=== PATIENT | male | born 1965 ===

== ENCOUNTER 2023-01-23 14:01 | Inpatient (IN) | payer MEDICARE ==
[2023-01-23] MEDS ORDERED: MAGNESIUM HYDROXIDE 2,400 MG/30 ML CUP PO PRN (14:07)
[2023-01-23] MEDS ORDERED: MAG HYDROX/AL HYDROX/SIMETH 30 ML CUP PO PRN (14:07)
[2023-01-23] MEDS ORDERED: ACETAMINOPHEN TAB 325 MG TAB PO PRN (14:07)
[2023-01-23] MEDS ORDERED: IBUPROFEN 600 MG TAB PO PRN (14:07)
[2023-01-23] MEDS ORDERED: CALCIUM CARBONATE 500 MG CHEWABLE PO PRN (14:07)
[2023-01-23] MEDS ORDERED: OLANZapine 10 MG VIAL IM PRN (14:07)
[2023-01-23] MEDS ORDERED: OLANZapine 5 MG TAB PO PRN (14:07)
[2023-01-23] MEDS ORDERED: ALBUTEROL NEBULIZED 2.5 MG/3 ML INHALATION PRN (14:24)
[2023-01-23] MEDS ORDERED: hydrOXYzine pamoate 25 MG CAP PO PRN (14:29)
[2023-01-23] MEDS ORDERED: hydrOXYzine HCL 50 MG/ML 1 ML VIAL IM PRN (14:29)
[2023-01-24 15:53] LABS: Prothrombin Time 19.6 sec (9.0-12.0)
[2023-01-24] MEDS: FAMOTIDINE 20 MG TAB PO SCH ×3 (16:02→21:39)
[2023-01-24] MEDS: FUROSEMIDE 20 MG TAB PO SCH ×3 (16:02→16:09)
[2023-01-24] MEDS: SYMBICORT 80-4.5 MCG INHALER INHALATION SCH ×3 (16:02→21:38)
[2023-01-24] MEDS: ATORVASTATIN 40 MG TAB PO SCH ×2 (16:02→21:38)
[2023-01-24] MEDS: GABAPENTIN 400 MG CAP PO SCH ×2 (16:02→21:39)
[2023-01-24] MEDS: metFORMIN 500 MG TAB PO SCH ×3 (16:02→17:19)
[2023-01-24] MEDS: GABAPENTIN 300 MG CAP PO SCH ×3 (16:03→21:40)
[2023-01-24] MEDS: methocarbamoL 750 MG TAB PO SCH ×5 (16:03→21:40)
[2023-01-24] MEDS: CITALOPRAM HYDROBROMIDE 20 MG TAB PO SCH (16:03)
[2023-01-24] MEDS: traZODone HCL 100 MG TAB PO SCH ×2 (16:03→21:40)
[2023-01-24] MEDS: NICOTINE 14MG/24HR PATCH TRANSDERM SCH ×2 (16:04→18:34)
[2023-01-24] MEDS: HYDROcodone/APAP 7.5-325MG 1 EACH TAB PO PRN ×2 (16:10→21:38)
[2023-01-24 16:22] LABS: Glucose,Whole Blood 103 mg/dL (70-110)
[2023-01-24] MEDS: LORazepam 1 MG TAB PO PRN ×2 (17:18→23:36)
[2023-01-24 17:46] LABS: Glucose,Whole Blood 123 mg/dL (70-110)
[2023-01-24] MEDS: WARFARIN 5 MG TAB PO SCH (18:34)
[2023-01-24 20:01] LABS: Glucose,Whole Blood 129 mg/dL (70-110)
[2023-01-25 03:15] LABS: LDL Cholesterol,Calculated 205.2 mg/dL (0.0-131.0)
--- NOTE | 2023-01-25 06:14 | P.MDCNMH ---
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 He claims that he was doing well and was sober from alcohol for about 5 years until the of his best friend 3 months ago relapsed after that and now he is drinking heavily he's having poor sleep poor appetite and thinking of suicide everyday Otherwise he denies any medical concerns at this time denies any fevers or chills denies any chest pain trouble breathing nausea vomiting abdominal pain changes in bowel or urinary habits review of systems Pertinent positives as noted in HPI. All other systems were reviewed and are negative on exam Constitutional: No acute distress, conversant, pleasant Eyes: Anicteric sclerae, moist conjunctiva, Pupils equal round reactive to light Neck: Supple, no masses, or JVD Lungs: Clear to auscultation Clear to percussion Normal respiratory effort, no accessory muscle use Cardiovascular: Heart regular in rate and rhythm, No murmurs, gallops, or rubs No peripheral edema Abdominal: Soft Nontender, no guarding, rebound or rigidity Abdomen moving with respiration Normoactive bowel sounds Psychiatric: Alert and oriented to person, place and time Neuro Muscles Strength 5/5 in all 4 extremities Sensation to light touch grossly present throughout Cranial nerves II-XII grossly intact Past Medical History Past Medical History: Diabetes Mellitus, Deep Vein Thrombosis (DVT), Neurologic Disorder, Pulmonary Embolus (PE), Sleep Apnea/CPAP/BIPAP Additional Past Medical History / Comment(s): Chronic back pain. History of Any Multi-Drug Resistant Organisms: None Reported Past Surgical History: Back Surgery Past Anesthesia/Blood Transfusion Reactions: No Reported Reaction Past Psychological History: Anxiety, PTSD Smoking Status: Never smoker Past Alcohol Use History: Daily Additional Past Alcohol Use History / Comment(s): Pt is using chewing tobacco, he also states he was drinking 3 fifths a day but has not had any alcohol for about 2 weeks. Past Drug Use History: None Reported Medications and Allergies Home Medications Medication Instructions Recorded Confirmed Type Atorvastatin [Lipitor] 40 mg PO DAILY 01/24/23 01/24/23 History Citalopram Hydrobromide [CeleXA] 40 mg PO DAILY 01/24/23 01/24/23 History Gabapentin 1,200 mg PO HS 01/24/23 01/24/23 History Gabapentin 600 mg PO BID 01/24/23 01/24/23 History HYDROcodone/APAP 7.5-325MG [[place] 1 tab PO QID PRN 01/24/23 01/24/23 History 7.5-325] Warfarin [Coumadin] 5 mg PO DAILY 01/24/23 01/24/23 History hydrOXYzine HCL [Atarax] 100 mg PO TID 01/24/23 01/24/23 History metFORMIN HCL ER [Glucophage XR] 1,000 mg PO BID 01/24/23 01/24/23 History methocarbamoL [Methocarbamol] 750 mg PO QID 01/24/23 01/24/23 History traZODone HCL [Desyrel] 100 mg PO HS 01/24/23 01/24/23 History Allergies Allergy/AdvReac Type Severity Reaction Status Date / Time No Known Allergies Allergy Verified 01/24/23 16:44 Physical Exam Vitals: Vital Signs Temp Pulse Resp BP Pulse Ox 01/24/23 16:23 97.3 F L 78 20 139/72 97 01/24/23 15:13 97.3 F L 78 20 139/72 97 Intake and Output 01/24/23 01/24/23 01/25/23 14:59 22:59 06:59 Other: Weight 158.02 kg Cranial Nerve Examination - Cranial Nerves Cranial Nerve II- Optic: Intact Cranial Nerve III- Oculomotor: Intact Cranial Nerve IV- Trochlear: Intact Cranial Nerve V- Trigeminal: Intact Cranial Nerve - Abducens: Intact Cranial Nerve VII- Facial: Intact Cranial Nerve VIII- Auditory: Intact Cranial Nerve IX- Glossopharyngeal: Intact Cranial Nerve X- Vagus: Intact Cranial Nerve XI- Accessory: Intact Cranial Nerve XII- Hypoglossal: Intact Results Labs: Abnormal Lab Results - Last 24 Hours (Table) 01/24/23 01/24/23 01/24/23 Range/Units 15:26 15:26 17:44 PT 19.6 H (9.0-12.0) sec INR 2.0 H (<1.2) POC Glucose (mg/dL) 123 H (70-110) mg/dL Triglycerides 336.00 H (0.00-149.00) mg/dL Cholesterol 328.00 H (0.00-200.00) mg/dL LDL Cholesterol, Calc 205.2 H (0.0-131.0) mg/dL VLDL Cholesterol, Calc 67.20 H (5.00-40.00) mg/dL 01/24/23 Range/Units 19:59 PT (9.0-12.0) sec INR (<1.2) POC Glucose (mg/dL) 129 H (70-110) mg/dL Triglycerides (0.00-149.00) mg/dL Cholesterol (0.00-200.00) mg/dL LDL Cholesterol, Calc (0.0-131.0) mg/dL VLDL Cholesterol, Calc (5.00-40.00) mg/dL Assessment and Plan Assessment: h/o DVT PE continue coumadin dosing by pharmacy hyperlipidemia LDL 205 continue with atorvastatin DM continue with metformin EVY continue with night time oxygen , not allowed to use CPAP in the unit depression adn suicidal management per psych morbid obesity counseled to life style modification and weight loss thank you for this consultation
[2023-01-25 08:16] LABS: Glucose,Whole Blood 123 mg/dL (70-110)
[2023-01-25] MEDS: NICOTINE 14MG/24HR PATCH TRANSDERM SCH (08:50)
[2023-01-25] MEDS: metFORMIN 500 MG TAB PO SCH ×2 (08:50→20:46)
[2023-01-25] MEDS: methocarbamoL 750 MG TAB PO SCH ×4 (08:51→21:14)
[2023-01-25] MEDS: GABAPENTIN 300 MG CAP PO SCH ×2 (08:51→20:47)
[2023-01-25] MEDS: FAMOTIDINE 20 MG TAB PO SCH ×2 (08:51→20:47)
[2023-01-25] MEDS: FUROSEMIDE 20 MG TAB PO SCH ×2 (08:51→15:43)
[2023-01-25] MEDS: CITALOPRAM HYDROBROMIDE 20 MG TAB PO SCH (08:51)
[2023-01-25] MEDS: SYMBICORT 80-4.5 MCG INHALER INHALATION SCH ×2 (08:52→21:24)
[2023-01-25] MEDS: HYDROcodone/APAP 7.5-325MG 1 EACH TAB PO PRN ×3 (08:53→21:19)
[2023-01-25] MEDS: LORazepam 1 MG TAB PO PRN ×3 (08:54→21:20)
[2023-01-25 09:38] LABS: INR 2.3 (<1.2); Prothrombin Time 22.3 sec (9.0-12.0)
[2023-01-25] MEDS: NICOTINE GUM (POLACRILEX) 2 MG GUM BUCCAL PRN ×2 (11:12→21:23)
--- NOTE | 2023-01-25 12:01 | P.HP ---
Psychiatric H&P - . 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 Karlene Cervantes 01/25/23 08:[address] Glu mg/dL 123 mg/dL 01/24/23 15:26 Hemoglobin A1c 5.9 % (<=6.0) 01/24/23 15:26 Triglycerides 336.00 mg/dL (0.00-149.00) H 01/24/23 15:26 Cholesterol 328.00 mg/dL (0.00-200.00) H 01/24/23 15:26 LDL Cholesterol, Calc 205.2 mg/dL (0.0-131.0) H 01/24/23 15:26 VLDL Cholesterol, Calc 67.20 mg/dL (5.00-40.00) H 01/24/23 15:26 HDL Cholesterol 55.60 mg/dL (40.00-60.00) 01/24/23 15:26 Cholesterol/HDL Ratio 5.90 Ratio 01/24/23 15:26 TSH 3.430 mIU/L (0.465-4.680) 01/24/23 15:26 01/25/23 12:00 IDENTIFYING DATA: Patient is a , unemployed, 57-year-old male with significant history of alcohol use disorder [facility] worsening depression and a suicide attempt by cutting. HPI: Patient presented to the hospital on 01/25/2023, presenting from [facility] for suicidal ideation with intent by cutting his left as per previous note, the patient has been increasingly depressed after the recent of his best friend. He has been drinking excessively after relapsing 3 months ago. He has petitioned and certified and brought to our hospital. Upon evaluation by this provider, the patient reports that his best friend 3 and half months ago. Prior to his best friend passing away, the patient reports that he was sober for 5 years. He states that since then, he has been drinking approximately 3 fifths of liquor per day. He reports that over the past few months, he has been attempting to kill himself and this included attempts to starve himself. He does report significant symptoms of depression including low mood, suicidal ideation, decreased appetite, poor sleep, crying episodes, guilt, hopelessness, and helplessness. The patient reports that after he cut himself with a knife, he contacted his friend who brought him to the emergency department. He does not endorse any significant symptoms of bipolar disorder. He denies any periods of excessive energy, grandiosity, increased goal-directed activity, or racing thoughts. The patient does not report any significant history of psychosis aside from alcohol related hallucinations. He denies any paranoia or other delusions. The patient does provide a significant history of substance abuse. He reports that over the past 12 years, he has spent approximately 9 years sober intermittently. He reports that his drug of choice is alcohol. He has been drinking up to 3 fifths of liquor per day. He has been to rehab 4 times in the past for an extended period of time approximately between 90-180 days each time. He denies any marijuana or illicit drug use. He does report a history of cocaine use in the distant past. He reports that he quit smoking in 2009 however uses chew. He is currently open with AA. He also works as an addictions counselor. He denies any significant history of trauma. He reports no history of physical or sexual abuse. PAST PSYCHIATRIC HISTORY: Patient states that history of a diagnosed with depression and anxiety. The patient recalls being presented prescribed Celexa, Vistaril, and Ativan. The patient reports that this is his second inpatient psychiatric admission. He reports one prior psychiatric admission when he was in his late 20s after attempting suicide. He does not have any current outpatient psychiatric treatment. He reports 2 prior attempts at suicide in the past. PMH: Past Medical History: Diabetes Mellitus, Deep Vein Thrombosis (DVT), Neurologic Disorder, Pulmonary Embolus (PE), Sleep Apnea/CPAP/BIPAP Additional Past Medical History / Comment(s): Chronic back pain. History of Any Multi-Drug Resistant Organisms: None Reported Past Surgical History: Back Surgery Past Anesthesia/Blood Transfusion Reactions: No Reported Reaction Past Psychological History: Anxiety, PTSD Smoking Status: Never smoker Past Alcohol Use History: Daily Additional Past Alcohol Use History / Comment(s): Pt is using chewing tobacco, he also states he was drinking 3 fifths a day but has not had any alcohol for about 2 weeks. Past Drug Use History: None Reported ALLERGIES: NO KNOWN DRUG ALLERGIES CHEMICAL DEPENDENCY HISTORY: as per HPI FAMILY PSYCHIATRIC/SUBSTANCE USE HISTORY: The patient reports that his paternal grandfather had dementia. SOCIAL HISTORY: Patient was born and raised in [place], [place]. He has been twice and twice. He has 3 adult sons. He reports that he was raised Confucianist. He has to engineering degrees and a masters in addiction. He denies any legal history. He reports no history of service. He currently is homeless however reports he has significant social support and would be able to find housing upon discharge. 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 MENTAL STATUS EXAM: General Appearance: Patient appears to be stated age is alert, directable, and attempts to cooperate. Patient appears to have fair hygiene and grooming. Obese body habitus. Behavior: Patient is seated without any agitated behavior. Eye contact is appropriate. Speech: Patient's speech is fluent and nonpressured. Mood/Affect: Patient reports their mood is depressed, affect is congruent and constricted. Suicidality/Homicidality: Patient reports suicidal ideation. He denies any homicidal ideation. Perceptions: Patient denies any visual hallucinations and denies any auditory hallucinations Though content/process: There is no evidence of any delusional thought content and thought process is linear and goal-directed. Memory and concentration: AOX3, grossly intact for the purposes of this session. Can spell "WORLD" backwards Judgment and insight: Fair STRENGTHS/WEAKNESSES: strength is that patient is resilient. Weakness is that patient has severe addiction problems. INTELLECT: average IMPRESSIONS: Major depressive disorder, recurrent, severe, with anxious features Alcohol use disorder PLAN: -Patient is admitted under voluntary status to MHU for stabilization of p sychiatric symptoms and safety. Patient signed adult voluntary form and medication consent and is placed in patient's chart. -Medications : Will start patient on Acamprosate 333 mg by mouth 3 times a day for alcohol use disorder Effexor 75 mg by mouth daily will be started on Saturday. We will cross titrate Celexa with Effexor. Begin to taper Celexa today. -Vistaril and Zyprexa PRN for agitation/aggression -Started thiamine, MVM for etoh use -Patient was counselled on substance abuse and desired to cut back on use -Patient was informed of the risks, benefits and side effects of the medication and patient verbally consented to taking the medications. Patient signed med consent form and was placed in chart. -Internal Medicine consult to perform medical evaluation and physical. -SW on board for discharge planning. Encourage patient to participate in groups to work on coping skills. 01/25/23 12:00
[2023-01-25] MEDS: ACAMPROSATE CALCIUM 333 MG TABLET.DR PO SCH ×2 (15:43→21:33)
[2023-01-25 16:05] VITALS: BMI 47.2
[2023-01-25] MEDS: WARFARIN 5 MG TAB PO SCH (20:45)
[2023-01-25] MEDS: traZODone HCL 100 MG TAB PO SCH (20:46)
[2023-01-25] MEDS: ATORVASTATIN 40 MG TAB PO SCH (20:46)
[2023-01-25] MEDS: GABAPENTIN 400 MG CAP PO SCH (20:47)
[2023-01-26 07:58] LABS: Glucose,Whole Blood 96 mg/dL (70-110)
[2023-01-26] MEDS: FAMOTIDINE 20 MG TAB PO SCH ×2 (08:49→21:54)
[2023-01-26] MEDS: methocarbamoL 750 MG TAB PO SCH ×4 (08:50→21:54)
[2023-01-26] MEDS: GABAPENTIN 300 MG CAP PO SCH ×2 (08:50→22:09)
[2023-01-26] MEDS: metFORMIN 500 MG TAB PO SCH ×2 (08:52→18:22)
[2023-01-26] MEDS: FUROSEMIDE 20 MG TAB PO SCH ×2 (08:52→16:20)
[2023-01-26] MEDS: ACAMPROSATE CALCIUM 333 MG TABLET.DR PO SCH ×3 (08:52→21:54)
[2023-01-26] MEDS: HYDROcodone/APAP 7.5-325MG 1 EACH TAB PO PRN ×3 (08:56→22:00)
[2023-01-26] MEDS: LORazepam 1 MG TAB PO PRN ×3 (08:56→22:00)
[2023-01-26] MEDS: NICOTINE GUM (POLACRILEX) 2 MG GUM BUCCAL PRN ×4 (08:58→21:54)
[2023-01-26] MEDS ORDERED: CITALOPRAM HYDROBROMIDE 10 MG TAB PO SCH (09:00)
[2023-01-26] MEDS: SYMBICORT 80-4.5 MCG INHALER INHALATION SCH ×2 (09:08→21:55)
[2023-01-26 09:13] LABS: INR 1.9 (<1.2); Prothrombin Time 18.3 sec (9.0-12.0)
[2023-01-26] MEDS: NICOTINE 14MG/24HR PATCH TRANSDERM SCH (09:21)
--- NOTE | 2023-01-26 10:45 | P.PN ---
Subjective Progress Note Date: 01/26/23 Principal diagnosis: IMPRESSIONS: Major depressive disorder, recurrent, severe, with anxious features Alcohol use disorder Patient Name: Holger Tong Date of : 1965 Patient Status: Inpatient Attending Provider: Kevin Osullivan Subjective/subjective data: Patient reports that he decided to come in on his own because he has multiple stressors in his life Patient wanted to go back already 2005. He states that his took everything from him including his kids and that she would not let him visit the children as they had decided Patient did not bring up the alcohol until the subject came up where he admits that he has been drinking quite heavily Patient says that he also his alcohol counselor and was better He also reports that he takes opiates where he is being prescribed 112 tablets per month which he takes only as prescribed He reports that his recent breakdown was from her best friend who recently He says that his goal was to drinking 3/5 every day until he He says that he goes through periods of sobriety for about 5 years before he loses it He states that he wants to get better ALLERGIES: NO KNOWN DRUG ALLERGIES MENTAL STATUS EXAM: General Appearance: Patient appears to be stated age is alert, directable, and attempts to cooperate. Patient appears to have poor hygiene and grooming. Obese body habitus. Has his T-shirt on which states 'gas monkey' Behavior: Patient is seated without any agitated behavior. Eye contact is appropriate. Speech: Patient's speech is fluent and nonpressured. Mood/Affect: Patient reports his mood is depressed, affect is congruent and constricted. Suicidality/Homicidality: Patient reports suicidal ideation. He denies any homicidal ideation. Perceptions: Patient denies any visual hallucinations and denies any auditory hallucinations Though content/process: There is no evidence of any delusional thought content and thought process is linear and goal-directed. Memory and concentration: AOX3, grossly intact for the purposes of this session. Judgment and insight: Fair STRENGTHS/WEAKNESSES: strength is that patient is resilient. Weakness is that patient has severe addiction problems. INTELLECT: average IMPRESSIONS: Major depressive disorder, recurrent, severe, with anxious features Alcohol use disorder PLAN: -Patient is admitted under voluntary status to MHU for stabilization of psychiatric symptoms and safety. Patient signed adult voluntary form and medication consent and is placed in patient's chart. -Medications : Acamprosate 333 mg by mouth 3 times a day for alcohol use disorder Effexor 75 mg by mouth daily will be started on Saturday. cross titrate Celexa with Effexor. -Vistaril and Zyprexa PRN for agitation/aggression -Started thiamine, MVM for etoh use -Patient was counselled on substance abuse and desired to cut back on use -Patient was informed of the risks, benefits and side effects of the medication and patient verbally consented to taking the medications. Patient signed med consent form and was placed in chart. -Internal Medicine consult to perform medical evaluation and physical. -SW on board for discharge planning. Encourage patient to participate in groups to work on coping skills. Bartolome Sullivan M.D. 01/26/2023 Objective - Vital Signs Vital signs: Vital Signs Temp 97.9 F 01/26/23 03:13 Pulse 77 01/26/23 03:13 Resp 18 01/26/23 03:13 BP 119/63 01/26/23 03:13 Pulse Ox 96 01/26/23 03:13 FiO2 Intake & Output 01/25/23 01/26/23 01/26/23 18:59 06:59 18:59 Weight 158.02 kg - Labs Labs: Abnormal Lab Results - Last 24 Hours (Table) 01/26/23 Range/Units 08:37 PT 18.3 H (9.0-12.0) sec INR 1.9 H (<1.2)
[2023-01-26] MEDS: WARFARIN 5 MG TAB PO SCH (18:23)
[2023-01-26] MEDS: traZODone HCL 100 MG TAB PO SCH (21:54)
[2023-01-26] MEDS: ATORVASTATIN 40 MG TAB PO SCH (21:54)
[2023-01-26] MEDS: GABAPENTIN 400 MG CAP PO SCH (21:54)
[2023-01-27] MEDS: HYDROcodone/APAP 7.5-325MG 1 EACH TAB PO PRN ×3 (05:35→19:30)
[2023-01-27] MEDS: LORazepam 1 MG TAB PO PRN ×2 (05:41→18:19)
[2023-01-27 06:55] LABS: INR 1.6 (<1.2); Prothrombin Time 16.1 sec (9.0-12.0)
[2023-01-27 08:00] LABS: Glucose,Whole Blood 100 mg/dL (70-110)
[2023-01-27] MEDS: SYMBICORT 80-4.5 MCG INHALER INHALATION SCH ×2 (08:47→22:39)
[2023-01-27] MEDS: FAMOTIDINE 20 MG TAB PO SCH ×2 (08:48→22:40)
[2023-01-27] MEDS: CITALOPRAM HYDROBROMIDE 20 MG TAB PO SCH (08:48)
[2023-01-27] MEDS: metFORMIN 500 MG TAB PO SCH ×2 (08:48→16:16)
[2023-01-27] MEDS: GABAPENTIN 300 MG CAP PO SCH ×2 (08:48→21:18)
[2023-01-27] MEDS: FUROSEMIDE 20 MG TAB PO SCH ×2 (08:48→16:16)
[2023-01-27] MEDS: ACAMPROSATE CALCIUM 333 MG TABLET.DR PO SCH ×3 (08:48→22:40)
[2023-01-27] MEDS: NICOTINE GUM (POLACRILEX) 2 MG GUM BUCCAL PRN ×3 (08:49→18:20)
[2023-01-27] MEDS: VENLAFAXINE HCL ER 75 MG CAP PO SCH (08:49)
[2023-01-27] MEDS: methocarbamoL 750 MG TAB PO SCH ×4 (08:49→22:40)
[2023-01-27] MEDS: NICOTINE 14MG/24HR PATCH TRANSDERM SCH (08:51)
--- NOTE | 2023-01-27 09:44 | P.PN ---
Subjective Progress Note Date: 01/27/23 Principal diagnosis: IMPRESSIONS: Major depressive disorder, recurrent, severe, with anxious features Alcohol use disorder Patient Name: Holger Tong Date of : 1965 Patient Status: Inpatient Attending Provider: Kevin Osullivan Subjective/subjective data: Patient states that he did not seem to sleep well last night because of something he may have ate He says that emotionally he started to feel better and that he is not having any suicidal or homicidal thoughts He states that he is looking forward to working on his sobriety although he does not feel that alcohol is such a major problem anymore He feels that after getting up and moving around a little bit that he might start feeling better but currently is trying to get some more sleep since he didn't sleep too well last night He feels that the hospitalization is certainly helped him to pull himself together better ALLERGIES: NO KNOWN DRUG ALLERGIES MENTAL STATUS EXAM: General Appearance: Patient appears to be stated age is alert, directable, and attempts to cooperate. Patient appears to have poor hygiene and grooming. Obese body habitus. Has his T-shirt on which states 'gas monkey' Behavior: Patient is seated without any agitated behavior. Eye contact is appropriate. Speech: Patient's speech is fluent and nonpressured. Mood/Affect: Patient reports his mood is depressed, affect is congruent and constricted. Suicidality/Homicidality: Patient reports suicidal ideation. He denies any homicidal ideation. Perceptions: Patient denies any visual hallucinations and denies any auditory hallucinations Though content/process: There is no evidence of any delusional thought content and thought process is linear and goal-directed. Memory and concentration: AOX3, grossly intact for the purposes of this session. Judgment and insight: Fair STRENGTHS/WEAKNESSES: strength is that patient is resilient. Weakness is that patient has severe addiction problems. INTELLECT: average IMPRESSIONS: Major depressive disorder, recurrent, severe, with anxious features Alcohol use disorder PLAN: -Patient is admitted under voluntary status to MHU for stabilization of psychiatric symptoms and safety. Patient signed adult voluntary form and medication consent and is placed in patient's chart. -Medications : Acamprosate 333 mg by mouth 3 times a day for alcohol use disorder Effexor 75 mg by mouth daily will be started on Saturday. cross titrate Celexa with Effexor. -Vistaril and Zyprexa PRN for agitation/aggression -Started thiamine, MVM for etoh use -Patient was counselled on substance abuse and desired to cut back on use -Patient was informed of the risks, benefits and side effects of the medication and patient verbally consented to taking the medications. Patient signed med consent form and was placed in chart. -Internal Medicine consult to perform medical evaluation and physical. -SW on board for discharge planning. Encourage patient to participate in groups to work on coping skills. Bartolome Sullivan M.D. 01/27/2023 Objective - Vital Signs Vital signs: Vital Signs Temp 97.4 F L 01/27/23 06:44 Pulse 79 01/27/23 06:44 Resp 16 01/27/23 06:44 BP 123/62 01/27/23 06:44 Pulse Ox 95 01/27/23 06:44 FiO2 - Labs Labs: Abnormal Lab Results - Last 24 Hours (Table) 01/26/23 01/27/23 Range/Units 08:37 05:47 PT 18.3 H 16.1 H (9.0-12.0) sec INR 1.9 H 1.6 H (<1.2)
[2023-01-27] MEDS ORDERED: WARFARIN 7.5 MG TAB PO ONE (18:00)
[2023-01-27] MEDS: ATORVASTATIN 40 MG TAB PO SCH (22:40)
[2023-01-27] MEDS: GABAPENTIN 400 MG CAP PO SCH (22:40)
[2023-01-27] MEDS: traZODone HCL 100 MG TAB PO SCH (22:40)
[2023-01-28] MEDS: LORazepam 1 MG TAB PO PRN ×4 (02:09→22:27)
[2023-01-28] MEDS: NICOTINE GUM (POLACRILEX) 2 MG GUM BUCCAL PRN ×4 (02:09→22:35)
[2023-01-28] MEDS: HYDROcodone/APAP 7.5-325MG 1 EACH TAB PO PRN ×4 (02:09→22:26)
[2023-01-28] MEDS: metFORMIN 500 MG TAB PO SCH ×2 (08:39→18:26)
[2023-01-28] MEDS: VENLAFAXINE HCL ER 75 MG CAP PO SCH (08:40)
[2023-01-28] MEDS: GABAPENTIN 300 MG CAP PO SCH ×4 (08:40→20:45)
[2023-01-28] MEDS: ACAMPROSATE CALCIUM 333 MG TABLET.DR PO SCH ×3 (08:40→20:45)
[2023-01-28] MEDS: CITALOPRAM HYDROBROMIDE 20 MG TAB PO SCH (08:41)
[2023-01-28] MEDS: SYMBICORT 80-4.5 MCG INHALER INHALATION SCH ×2 (08:41→20:47)
[2023-01-28] MEDS: NICOTINE 14MG/24HR PATCH TRANSDERM SCH (08:41)
[2023-01-28] MEDS: FUROSEMIDE 20 MG TAB PO SCH ×2 (08:41→15:16)
[2023-01-28] MEDS: FAMOTIDINE 20 MG TAB PO SCH ×2 (08:41→20:45)
[2023-01-28] MEDS: methocarbamoL 750 MG TAB PO SCH ×4 (08:41→20:46)
--- NOTE | 2023-01-28 11:15 | P.PN ---
Progress Note - Text Progress Note Date: 01/28/23 Interval History: Patient was seen attending group and was directable and agreeable to speak with policy writer typist in the office. Patient reports that he feels like he would be unsafe if he was to be discharged today. He reports concern or safety as well as concerns for relapse. He reports suicidal ideation. He is not reporting any homicidal ideation. He reports difficulty with sleep. He reports no auditory or visual hallucinations. He denies any paranoia or delusions. He has been adherent with his medication and is not reporting any significant side effects. He reports that he appears to be social and happy with peers because that is the only way he is able to maintain some kind of happiness. Mental Status Exam: General Appearance: Patient appears to be stated age is alert, directable, and cooperative. Behavior: Patient is calmly seated without any agitated behavior. Speech: Patient's speech is fluent and nonpressured. Mood/Affect: Mood is improving mildly, affect is congruent and constricted. Suicidality/Homicidality: Patient reports suicidal ideation however denies any homicidal ideation. Perceptions: Patient denies any visual hallucinations and denies any auditory hallucinations Though content/process: There is no evidence of any delusional thought content and thought process is linear and goal-directed. Memory and concentration: AOX3, grossly intact for the purposes of this session Judgment and insight: Improving mildly Vital Signs Temp 98.1 F 01/28/23 02:11 Pulse 79 01/28/23 02:11 Resp 18 01/28/23 02:11 BP 123/67 01/28/23 02:11 Pulse Ox 96 01/28/23 02:11 FiO2 Assessment Major depressive disorder, recurrent, severe, with anxious features Alcohol use disorder Plan: -Patient continues to meet criteria for inpatient psychiatric admission for symptom stabilization and safety. Patient has signed adult voluntary form and medication consent and was placed in patient's chart. -Medications: Increase Campral to 666 mg by mouth 3 times a day for alcohol use disorder Discontinue Celexa Increase Effexor to 150 mg by mouth daily for depression/anxiety Increase trazodone to 150 mg by mouth at bedtime for insomnia -When necessary Vistaril and Zyprexa for agitation/aggression. -SW on board for discharge planning. Encouraged the patient to participate in milieu.
[2023-01-28 12:41] LABS: Glucose,Whole Blood 79 mg/dL (70-110)
[2023-01-28 13:19] LABS: INR 1.6 (<1.2); Prothrombin Time 16.2 sec (9.0-12.0)
[2023-01-28] MEDS ORDERED: WARFARIN 7.5 MG TAB PO ONE (18:00)
[2023-01-28] MEDS: ATORVASTATIN 40 MG TAB PO SCH (20:45)
[2023-01-28] MEDS: traZODone HCL 50 MG TAB PO SCH (22:26)
[2023-01-29] MEDS: LORazepam 1 MG TAB PO PRN ×3 (05:33→20:02)
[2023-01-29] MEDS: HYDROcodone/APAP 7.5-325MG 1 EACH TAB PO PRN ×3 (05:33→22:54)
[2023-01-29 07:57] LABS: Glucose,Whole Blood 95 mg/dL (70-110)
[2023-01-29] MEDS: SYMBICORT 80-4.5 MCG INHALER INHALATION SCH ×2 (08:42→20:04)
[2023-01-29] MEDS: FAMOTIDINE 20 MG TAB PO SCH ×2 (08:42→20:02)
[2023-01-29] MEDS: metFORMIN 500 MG TAB PO SCH ×2 (08:43→17:29)
[2023-01-29] MEDS: ACAMPROSATE CALCIUM 333 MG TABLET.DR PO SCH ×3 (08:43→20:02)
[2023-01-29] MEDS: methocarbamoL 750 MG TAB PO SCH ×4 (08:44→20:03)
[2023-01-29] MEDS: FUROSEMIDE 20 MG TAB PO SCH ×2 (08:44→17:29)
[2023-01-29] MEDS: VENLAFAXINE HCL ER 75 MG CAP PO SCH (08:44)
[2023-01-29] MEDS: GABAPENTIN 300 MG CAP PO SCH ×4 (08:46→20:02)
[2023-01-29] MEDS: NICOTINE 14MG/24HR PATCH TRANSDERM SCH (09:05)
[2023-01-29] MEDS: NICOTINE GUM (POLACRILEX) 2 MG GUM BUCCAL PRN ×3 (09:18→22:55)
[2023-01-29 09:30] LABS: Prothrombin Time 19.8 sec (9.0-12.0)
--- NOTE | 2023-01-29 11:26 | P.PN ---
Progress Note - Text Progress Note Date: 01/29/23 Interval History: Patient was seen attending group and was directable and agreeable to speak with commercial loan underwriter in the office. The patient reports that he continues to deal severe grief and loss after the of his best friend. He reports that it comes in waves. He does endorse suicidal ideation when he feels extremely down. He reports that he was having suicidal thoughts this morning. He is not reporting any intention or plan at this time. He denies any homicidal ideation, intention, and/or plan. He is not reporting any auditory or visual hallucinations. He is denying any paranoia or other delusions. He has been adherent with his medication and is not reporting any significant side effects. The patient does report that none of his friends have responded back to him in regards to his housing situation upon discharge. The patient reports that his depression is improving however his anxiety continues to be poor. He reports that he is able to sleep well last night. Mental Status Exam: Grossly unchanged from yesterday. General Appearance: Patient appears to be stated age is alert, directable, and cooperative. Behavior: Patient is calmly seated without any agitated behavior. Speech: Patient's speech is fluent and nonpressured. Mood/Affect: Mood is improving mildly, affect is congruent and constricted. Suicidality/Homicidality: Patient reports suicidal ideation however denies any homicidal ideation. Perceptions: Patient denies any visual hallucinations and denies any auditory hallucinations Though content/process: There is no evidence of any delusional thought content and thought process is linear and goal-directed. Memory and concentration: AOX3, grossly intact for the purposes of this session Judgment and insight: Improving mildly Vital Signs Temp 98.3 F 01/29/23 06:47 Pulse 75 01/29/23 06:47 Resp 18 01/29/23 06:47 BP 143/68 01/29/23 06:47 Pulse Ox 96 01/29/23 06:47 FiO2 Laboratory Results - Last 24 Hours 01/28/23 01/28/23 01/29/23 12:35 12:40 07:56 PT 16.2 H INR 1.6 H POC Glucose (mg/dL) 79 95 POC Glu Regulatory Compliance Engineer ID Ambreen Marlow 01/29/23 08:58 PT 19.8 H INR 2.0 H POC Glucose (mg/dL) POC Glu Regulatory Compliance Engineer ID Assessment Major depressive disorder, recurrent, severe, with anxious features Alcohol use disorder Plan: -Patient continues to meet criteria for inpatient psychiatric admission for symptom stabilization and safety. Patient has signed adult voluntary form and medication consent and was placed in patient's chart. -Medications: Continue Campral 666 mg by mouth 3 times a day for alcohol use disorder Change gabapentin to 600 mg by mouth 4 times a day for neuropathy Continue Effexor 150 mg by mouth daily for depression/anxiety Continue trazodone 150 mg by mouth at bedtime for insomnia -When necessary Vistaril and Zyprexa for agitation/aggression. -SW on board for discharge planning. Encouraged the patient to participate in milieu.
[2023-01-29] MEDS ORDERED: WARFARIN 3 MG TAB PO ONE (18:00)
[2023-01-29] MEDS: ATORVASTATIN 40 MG TAB PO SCH (20:02)
[2023-01-29] MEDS: traZODone HCL 50 MG TAB PO SCH (22:53)
[2023-01-30] MEDS: LORazepam 1 MG TAB PO PRN ×3 (06:52→20:09)
[2023-01-30 07:58] LABS: Glucose,Whole Blood 117 mg/dL (70-110)
[2023-01-30] MEDS: ACAMPROSATE CALCIUM 333 MG TABLET.DR PO SCH ×3 (08:45→22:08)
[2023-01-30] MEDS: GABAPENTIN 300 MG CAP PO SCH ×4 (08:45→22:10)
[2023-01-30] MEDS: VENLAFAXINE HCL ER 75 MG CAP PO SCH (08:45)
[2023-01-30] MEDS: FAMOTIDINE 20 MG TAB PO SCH ×2 (08:46→22:09)
[2023-01-30] MEDS: SYMBICORT 80-4.5 MCG INHALER INHALATION SCH ×2 (08:46→22:43)
[2023-01-30] MEDS: FUROSEMIDE 20 MG TAB PO SCH ×2 (08:46→16:09)
[2023-01-30] MEDS: methocarbamoL 750 MG TAB PO SCH ×4 (08:46→22:09)
[2023-01-30] MEDS: metFORMIN 500 MG TAB PO SCH ×2 (08:46→17:51)
[2023-01-30] MEDS: NICOTINE 14MG/24HR PATCH TRANSDERM SCH (08:46)
[2023-01-30] MEDS: HYDROcodone/APAP 7.5-325MG 1 EACH TAB PO PRN ×3 (08:50→22:08)
[2023-01-30 09:18] LABS: INR 2.3 (<1.2); Prothrombin Time 22.7 sec (9.0-12.0)
[2023-01-30] MEDS: NICOTINE GUM (POLACRILEX) 2 MG GUM BUCCAL PRN ×3 (10:36→20:09)
--- NOTE | 2023-01-30 11:30 | P.PN ---
Progress Note - Text Progress Note Date: 01/30/23 Interval History: Patient was seen attending group and was directable and agreeable to speak with sports book writer in the office. Patient reports that he continues to deal with significant grief and elevated anxiety. He states that he had some difficulty with sleep last night as he was experiencing suicidal thoughts prior to bedtime. This morning, he does report that his depression has been improving and is not endorsing any suicidal or homicidal ideation, intention, or plan today. He does express concern for his discharge planning as he lives approximately 4 hours from our psychiatric unit. He does report that he has been working on arranging transportation however his friend would be able to become up would not be able to do so until Saturday morning. He does report that overall his mood seems to be improving. He has been adherent with his medication and is not reporting any significant side effects at this time. Mental Status Exam: General Appearance: Patient appears to be stated age is alert, directable, and cooperative. Behavior: Patient is calmly seated without any agitated behavior. Speech: Patient's speech is fluent and nonpressured. Mood/Affect: Mood is improving mildly, affect is congruent and constricted. Suicidality/Homicidality: Patient reports suicidal ideation however denies any homicidal ideation. Perceptions: Patient denies any visual hallucinations and denies any auditory hallucinations Though content/process: There is no evidence of any delusional thought content and thought process is linear and goal-directed. Memory and concentration: AOX3, grossly intact for the purposes of this session Judgment and insight: Improving mildly Vital Signs Temp 98.1 F 01/30/23 06:53 Pulse 80 01/30/23 06:53 Resp 15 01/30/23 06:53 BP 115/55 01/30/23 06:53 Pulse Ox 97 01/30/23 06:53 FiO2 Intake & Output 01/29/23 01/30/23 01/30/23 18:59 06:59 18:59 Weight 158.02 kg Laboratory Results PT 22.7 sec (9.0-12.0) H 01/30/23 08:21 INR 2.3 (<1.2) H 01/30/23 08:21 POC Glucose (mg/dL) 117 mg/dL (70-110) H 01/30/23 07:55 POC Glu Interceptor Operator ID Susan Ramosa 01/30/23 07:[address] Glu mg/dL 123 mg/dL 01/24/23 15:26 Hemoglobin A1c 5.9 % (<=6.0) 01/24/23 15:26 Triglycerides 336.00 mg/dL (0.00-149.00) H 01/24/23 15:26 Cholesterol 328.00 mg/dL (0.00-200.00) H 01/24/23 15:26 LDL Cholesterol, Calc 205.2 mg/dL (0.0-131.0) H 01/24/23 15:26 VLDL Cholesterol, Calc 67.20 mg/dL (5.00-40.00) H 01/24/23 15:26 HDL Cholesterol 55.60 mg/dL (40.00-60.00) 01/24/23 15: Cholesterol/HDL Ratio 5.90 Ratio 01/24/23 15: TSH 3.430 mIU/L (0.465-4.680) 01/24/23 15:26 Assessment Major depressive disorder, recurrent, severe, with anxious features Alcohol use disorder Plan: -Patient continues to meet criteria for inpatient psychiatric admission for symptom stabilization and safety. Patient has signed adult voluntary form and medication consent and was placed in patient's chart. -Medications: Continue Campral 666 mg by mouth 3 times a day for alcohol use disorder Continue gabapentin 600 mg by mouth 4 times a day for neuropathy Increase Effexor to 225 mg by mouth daily for depression/anxiety Increase trazodone to 200 mg by mouth at bedtime for insomnia -When necessary Vistaril and Zyprexa for agitation/aggression. -SW on board for discharge planning. Encouraged the patient to participate in milieu.
[2023-01-30 16:12] VITALS: RESP 18
[2023-01-30] MEDS ORDERED: WARFARIN 5 MG TAB PO ONE (18:00)
[2023-01-30] MEDS: traZODone HCL 100 MG TAB PO SCH (22:09)
[2023-01-30] MEDS: ATORVASTATIN 40 MG TAB PO SCH (22:10)
[2023-01-31] MEDS: HYDROcodone/APAP 7.5-325MG 1 EACH TAB PO PRN ×3 (04:30→21:04)
[2023-01-31] MEDS: LORazepam 1 MG TAB PO PRN ×3 (04:31→21:05)
[2023-01-31 07:37] LABS: Glucose,Whole Blood 107 mg/dL (70-110)
[2023-01-31] MEDS: metFORMIN 500 MG TAB PO SCH ×2 (07:37→18:25)
[2023-01-31] MEDS: SYMBICORT 80-4.5 MCG INHALER INHALATION SCH (07:38)
[2023-01-31] MEDS: NICOTINE GUM (POLACRILEX) 2 MG GUM BUCCAL PRN ×3 (07:38→22:15)
[2023-01-31] MEDS: methocarbamoL 750 MG TAB PO SCH ×4 (08:27→21:06)
[2023-01-31] MEDS: VENLAFAXINE HCL ER 75 MG CAP PO SCH (08:27)
[2023-01-31] MEDS: FAMOTIDINE 20 MG TAB PO SCH ×2 (08:27→21:06)
[2023-01-31] MEDS: ACAMPROSATE CALCIUM 333 MG TABLET.DR PO SCH ×3 (08:27→21:05)
[2023-01-31] MEDS: FUROSEMIDE 20 MG TAB PO SCH ×2 (08:27→15:33)
[2023-01-31] MEDS: NICOTINE 14MG/24HR PATCH TRANSDERM SCH (08:28)
[2023-01-31] MEDS: GABAPENTIN 300 MG CAP PO SCH ×4 (08:30→22:15)
[2023-01-31 09:09] LABS: INR 2.2 (<1.2)
--- NOTE | 2023-01-31 11:11 | P.PN ---
Progress Note - Text Progress Note Date: 01/31/23 Interval History: Patient was seen attending group and was directable and agreeable to speak with engineering writer in his room. Currently, the patient is not reporting any suicidal or homicidal ideation, intention, or plan. He is not reporting any auditory or visual hallucinations. He denies any paranoia or other delusions. He has been in adherent with his medications and is not reporting any significant side effects. He states that he feels significantly better with the increase in his medication dosage. The patient reports that his friend was able to pick him up tomorrow as he lives quite a distance away. They have been able to work out transportation. He is in agreement for discharge tomorrow. He reports no issues regarding his sleep or his appetite. Mental Status Exam: General Appearance: Patient appears to be stated age is alert, directable, and cooperative. Behavior: Patient is calmly seated without any agitated behavior. Speech: Patient's speech is fluent and nonpressured. Mood/Affect: Mood is improving mildly, affect is congruent and euthymic. Suicidality/Homicidality: Patient reports suicidal ideation however denies any homicidal ideation. Perceptions: Patient denies any visual hallucinations and denies any auditory hallucinations Though content/process: There is no evidence of any delusional thought content and thought process is linear and goal-directed. Memory and concentration: AOX3, grossly intact for the purposes of this session Judgment and insight: Improving mildly Vital Signs Temp 97.8 F 01/31/23 04:59 Pulse 83 01/31/23 04:59 Resp 18 01/31/23 04:59 BP 144/70 01/31/23 08:33 Pulse Ox 98 01/31/23 04:59 FiO2 Laboratory Results - Last 24 Hours 01/31/23 01/31/23 07:35 08:35 PT 22.0 H INR 2.2 H POC Glucose (mg/dL) 107 POC Glu Cable Inspector ID Padmini Ramos Assessment Major depressive disorder, recurrent, severe, with anxious features Alcohol use disorder Plan: -Patient continues to meet criteria for inpatient psychiatric admission for symptom stabilization and safety. Patient has signed adult voluntary form and medication consent and was placed in patient's chart. -Medications: Continue Campral 666 mg by mouth 3 times a day for alcohol use disorder Continue gabapentin 600 mg by mouth 4 times a day for neuropathy Continue Effexor 225 mg by mouth daily for depression/anxiety Continue trazodone 200 mg by mouth at bedtime for insomnia -When necessary Vistaril and Zyprexa for agitation/aggression. -SW on board for discharge planning. Encouraged the patient to participate in milieu.
[2023-01-31] MEDS ORDERED: WARFARIN 5 MG TAB PO ONE (18:00)
[2023-01-31] MEDS: ATORVASTATIN 40 MG TAB PO SCH (21:07)
[2023-01-31] MEDS: traZODone HCL 100 MG TAB PO SCH (22:15)
[2023-02-01] MEDS: SYMBICORT 80-4.5 MCG INHALER INHALATION SCH ×3 (00:08→20:37)
[2023-02-01 07:21] LABS: Prothrombin Time 19.8 sec (9.0-12.0)
[2023-02-01] MEDS: ACAMPROSATE CALCIUM 333 MG TABLET.DR PO SCH ×3 (08:45→20:37)
[2023-02-01] MEDS: VENLAFAXINE HCL ER 75 MG CAP PO SCH (08:45)
[2023-02-01] MEDS: FAMOTIDINE 20 MG TAB PO SCH ×2 (08:45→20:37)
[2023-02-01] MEDS: NICOTINE 14MG/24HR PATCH TRANSDERM SCH (08:45)
[2023-02-01] MEDS: methocarbamoL 750 MG TAB PO SCH ×4 (08:46→20:37)
[2023-02-01] MEDS: metFORMIN 500 MG TAB PO SCH ×2 (08:46→17:56)
[2023-02-01] MEDS: FUROSEMIDE 20 MG TAB PO SCH ×2 (08:46→15:20)
[2023-02-01] MEDS: GABAPENTIN 300 MG CAP PO SCH ×4 (08:46→20:37)
[2023-02-01] MEDS: HYDROcodone/APAP 7.5-325MG 1 EACH TAB PO PRN ×2 (08:49→23:14)
[2023-02-01] MEDS: LORazepam 1 MG TAB PO PRN ×3 (08:50→23:15)
[2023-02-01] MEDS: NICOTINE GUM (POLACRILEX) 2 MG GUM BUCCAL PRN ×3 (09:11→23:16)
[2023-02-01 10:35] VITALS: TEMP 96.7
--- NOTE | 2023-02-01 13:03 | P.DS ---
Providers Date of admission: 01/24/23 15:11 Expected date of discharge: 02/01/23 Attending physician: Kevin Osullivan MD Consults: 01/23/23 14:07 Consult Physician Routine Consulting Provider: [facility] Consult Reason/Comments: H & P with medical management Do you want consulting provider notified?: Yes Primary care physician: Physician Nonstaff - Discharge Diagnosis(es) (1) Major depressive disorder, recurrent episode, severe with anxious distress Current Visit: Yes Status: Acute Priority: High (2) Alcohol use disorder Current Visit: Yes Status: Chronic Priority: Medium Hospital Course: Admission HPI: Patient is a , unemployed, 57-year-old male with significant history of alcohol use disorder [facility] for worsening depression and a suicide attempt by cutting. HPI: Patient presented to the hospital on 01/25/2023, presenting from [facility] for suicidal ideation with intent by cutting his left as per previous note, the patient has been increasingly depressed after the recent of his best friend. He has been drinking excessively after relapsing 3 months ago. He has petitioned and certified and brought to our hospital. Upon evaluation by this provider, the patient reports that his best friend 3 and half months ago. Prior to his best friend passing away, the patient reports that he was sober for 5 years. He states that since then, he has been drinking approximately 3 fifths of liquor per day. He reports that over the past few months, he has been attempting to kill himself and this included attempts to starve himself. He does report significant symptoms of depression including low mood, suicidal ideation, decreased appetite, poor sleep, crying episodes, guilt, hopelessness, and helplessness. The patient reports that after he cut himself with a knife, he contacted his friend who brought him to the emergency department. He does not endorse any significant symptoms of bipolar disorder. He denies any periods of excessive energy, grandiosity, increased goal-directed activity, or racing thoughts. The patient does not report any significant history of psychosis aside from alcohol related hallucinations. He denies any paranoia or other delusions. The patient does provide a significant history of substance abuse. He reports that over the past 12 years, he has spent approximately 9 years sober intermittently. He reports that his drug of choice is alcohol. He has been drinking up to 3 fifths of liquor per day. He has been to rehab 4 times in the past for an extended period of time approximately between 90-180 days each time. He denies any marijuana or illicit drug use. He does report a history of cocaine use in the distant past. He reports that he quit smoking in 2009 however uses chew. He is currently open with AA. He also works as an addictions counselor. He denies any significant history of trauma. He reports no history of physical or sexual abuse. PAST PSYCHIATRIC HISTORY: Patient states that history of a diagnosed with depression and anxiety. The patient recalls being presented prescribed Celexa, Vistaril, and Ativan. The patient reports that this is his second inpatient psychiatric admission. He reports one prior psychiatric admission when he was in his late 20s after attempting suicide. He does not have any current outpatient psychiatric treatment. He reports 2 prior attempts at suicide in the past. Hospital course: Upon admission to the unit patient was initially presenting as depressed, withdrawn, and suicidal. Patient was however directable and agreeable to commence treatment. Patient got along well with other patients on the unit and followed unit protocol. Patient was compliant with the medications and denied any side effects throughout hospital course. Patient was started on and acamprosate for alcohol use disorder and Effexor for depression/anxiety. His Celexa was caused titrated with Effexor. Patient spoke of his stressors and engaged in therapy both group and individual. Patient was also seen by medical team for history and physical exam. Over the course of hospitals edition, the patient displayed significant improvement. He was also started on trazodone in order to address insomnia symptoms. Furthermore, the patient's gabapentin was adjusted to his normal regimen. The patient displayed significant improvement regards to target symptoms of depression, suicidal ideation, and anxiety. He also had improved sleep and appetite. We also engaged in grief counseling. On the day of discharge, the patient is not reporting any suicidal or homicidal ideation, intention, and/or plan. He reports no access to firearms or other weapons. He is not reporting any auditory or visual hallucinations. He denies any paranoia or other delusions. His mood in adherent with his medication is not reporting any significant side effects. The patient does have significant history of substance abuse and was counseled at great length and abstaining from all substances including alcohol, tobacco, marijuana, and all illicit drugs. As the patient no longer met criteria for continued inpatient psychiatric hospitalization, he was subsequently discharged with appropriate safety planning. He reported no medical issues and denied any chest pain,/breath, palpitations, headache, blurry vision, issues urinating, or any nausea and vomiting. Mental status exam: General Appearance: Patient appears to be stated age is alert, pleasant, and cooperative. Patient is in no acute distress and has fair hygiene and grooming. Obese body habitus. Behavior: Patient is calmly seated without any agitated behavior. Speech: Patient's speech is fluent and nonpressured. Mood/Affect: Patient reports their mood is "much better", affect is congruent and euthymic to bright. Suicidality/Homicidality: Patient denies having any suicidal or homicidal ideation intent or plan. Perceptions: Patient denies any auditory or visual hallucinations. Though content/process: There is no evidence of any delusional thought content and thought process is linear and goal-directed. Patient is future oriented. Memory and concentration: AOX3, grossly intact for the purposes of this session. Can spell "WORLD" backwards correctly. Judgment and insight: Improved with guarded prognosis Impression: Major depressive disorder, recurrent, severe, with anxious features Alcohol use disorder Plan: -Continue with discharge today as patient has improved and stabilized psychiatrically and is not currently an imminent threat to himself and/or others. Patient will remain at chronically elevated risk for harm to self and/or others due to previous attempts at suicide and alcohol use disorder. -Continue medications: Campral 666 mg by mouth 3 times a day for alcohol use disorder gabapentin 600 mg by mouth 4 times a day for neuropathy Effexor 225 mg by mouth daily for depression/anxiety trazodone 200 mg by mouth at bedtime for insomnia -Patient was counseled on the need for medication compliance and appropriate follow-up at mental health and also primary care for medical issues. Patient verbalized understanding and agreed. -Social work to arrange for and conduct family meeting to ensure safety upon discharge and answer any questions/concerns. Social work also to arrange for patients follow up appointments with [facility] for psychiatric care along with follow up with primary care provider. -Patient counseled on abstaining from recreational drugs and marijuana and alcohol. Was informed/educated on the adverse effects on their physical and mental health. Patient verbally agreed and understood. -Patient was instructed to return to the hospital or seek immediate medical care if their psychiatric or medical symptoms do worsen or reoccur. -Psychoeducation and supportive therapy provided to patient. Risks and benefits of pharmacological treatment versus the risks and benefits of nontreatment weighed and discussed. Informed consent discussion held. Common side effects of psychotropics discussed such as, but not limited to headache, GI disturbance, sexual dysfunction, movement disorders, sedation, and orthostatic hypotension. Life threatening and blackbox warnings of prescribed medications also discussed. Potential risks of operating a vehicle or heavy machinery discussed with maddison nguyen at length. Advised on importance of compliance and a reliable and responsible manner. Patient advised to review FDA consumer labeling of all medications prior to taking. Patient verbalized understanding of potential risks, and agrees with current treatment plan. Patient advised to medically contact physician/emergency personnel if any acute changes in condition occur. Vital Signs Temp 96.7 F L 02/01/23 10:34 Pulse 84 02/01/23 10:34 Resp 18 02/01/23 10:34 BP 143/78 02/01/23 10:34 Pulse Ox 96 02/01/23 10:34 FiO2 Laboratory Results PT 19.8 sec (9.0-12.0) H 02/01/23 06:43 INR 2.0 (<1.2) H 02/01/23 06:43 POC Glucose (mg/dL) 107 mg/dL (70-110) 01/31/23 07:35 POC Glu Experimental Assembler ID Padmini Ramos 01/31/23 07:[address] Glu mg/dL 123 mg/dL 01/24/23 15:26 Hemoglobin A1c 5.9 % (<=6.0) 01/24/23 15:26 Triglycerides 336.00 mg/dL (0.00-149.00) H 01/24/23 15:26 Cholesterol 328.00 mg/dL (0.00-200.00) H 01/24/23 15:26 LDL Cholesterol, Calc 205.2 mg/dL (0.0-131.0) H 01/24/23 15:26 VLDL Cholesterol, Calc 67.20 mg/dL (5.00-40.00) H 01/24/23 15:26 HDL Cholesterol 55.60 mg/dL (40.00-60.00) 01/24/23 15:26 Cholesterol/HDL Ratio 5.90 Ratio 01/24/23 15:26 TSH 3.430 mIU/L (0.465-4.680) 01/24/23 15:26 Allergies Allergy/AdvReac Type Severity Reaction Status Date / Time No Known Allergies Allergy Verified 01/24/23 16:44 Patient Condition at Discharge: Stable Plan - Discharge Summary Discharge Rx Participant: Yes New Discharge Prescriptions: New Atorvastatin [Lipitor] 40 mg PO HS 30 Days #30 tab HYDROcodone/APAP 7.5-325MG [[place] 7.5-325] 1 each PO Q6HR PRN 3 Days #12 tab PRN Reason: Pain traZODone HCL [Desyrel] 200 mg PO HS 30 Days #60 tab metFORMIN HCL [Glucophage] 1,000 mg PO BID-W/MEALS 30 Days #120 tab Furosemide [Lasix] 20 mg PO BID@0900,1600 30 Days #60 tab Gabapentin [Neurontin] 600 mg PO QID 15 Days #80 cap Nicotine Gum (Polacrilex) [Nicorette] 2 mg BUCCAL Q4HR PRN 7 Days #28 pieceofgum PRN Reason: Nicotine Cravings methocarbamoL [Robaxin-750] 750 mg PO QID 30 Days #30 tab Acamprosate Calcium [Campral] 666 mg PO TID 15 Days #80 tab Venlafaxine HCl [Effexor XR] 225 mg PO DAILY 30 Days #30 tab Discontinued Atorvastatin [Lipitor] 40 mg PO DAILY HYDROcodone/APAP 7.5-325MG [[place] 7.5-325] 1 tab PO QID PRN PRN Reason: Pain hydrOXYzine HCL [Atarax] 100 mg PO TID methocarbamoL [Methocarbamol] 750 mg PO QID traZODone HCL [Desyrel] 100 mg PO HS Warfarin [Coumadin] 5 mg PO DAILY Citalopram Hydrobromide [CeleXA] 40 mg PO DAILY Gabapentin 1,200 mg PO HS Gabapentin 600 mg PO BID metFORMIN HCL ER [Glucophage XR] 1,000 mg PO BID Discharge Medication List Acamprosate Calcium [Campral] 666 mg PO TID 15 Days #80 tab 02/01/23 [Rx] Atorvastatin [Lipitor] 40 mg PO HS 30 Days #30 tab 02/01/23 [Rx] Furosemide [Lasix] 20 mg PO BID@0900,1600 30 Days #60 tab 02/01/23 [Rx] Gabapentin [Neurontin] 600 mg PO QID 15 Days #80 cap 02/01/23 [Rx] HYDROcodone/APAP 7.5-325MG [[place] 7.5-325] 1 each PO Q6HR PRN 3 Days #12 tab 02/01/23 [Rx] Nicotine Gum (Polacrilex) [Nicorette] 2 mg BUCCAL Q4HR PRN 7 Days #28 pieceofgum 02/01/23 [Rx] Venlafaxine HCl [Effexor XR] 225 mg PO DAILY 30 Days #30 tab 02/01/23 [Rx] metFORMIN HCL [Glucophage] 1,000 mg PO BID-W/MEALS 30 Days #120 tab 02/01/23 [Rx] methocarbamoL [Robaxin-750] 750 mg PO QID 30 Days #30 tab 02/01/23 [Rx] traZODone HCL [Desyrel] 200 mg PO HS 30 Days #60 tab 02/01/23 [Rx] Follow up Appointment(s)/Referral(s): [facility] [Other] - 02/05/23 2:45 pm (pain management with Leif Parada) [facility] [Other] - 02/04/23 3:00 pm (with Amparo Franklin) [facility] [NON-STAFF] - 1 Week Patient Instructions/Handouts: Abuse of Alcohol (DC), Help Prevent Suicide (DC), Anxiety (GEN) Activity/Diet/Wound Care/Special Instructions: Avoid the use of street drugs and alcohol. Take all medications as prescribed. When you are in need of refills on your medications, please contact your medical provider and/or outpatient psychiatrist/provider to have this done. Please go to your scheduled outpatient appointment for aftercare treatment. If symptoms return or become worse, call the crisis line at and/or go to the nearest emergency room for evaluation. National Suicide Hotline 679. Discharge/Stand Alone Forms: AA Meetings [facility] Discharge Disposition: HOME SELF-CARE
[2023-02-01] MEDS ORDERED: WARFARIN 7.5 MG TAB PO ONE (18:00)
[2023-02-01] MEDS: ATORVASTATIN 40 MG TAB PO SCH (20:37)
[2023-02-01] MEDS: traZODone HCL 100 MG TAB PO SCH (23:15)
[2023-02-02 07:43] LABS: Glucose,Whole Blood 100 mg/dL (70-110)
[2023-02-02] MEDS: metFORMIN 500 MG TAB PO SCH ×2 (07:50→17:47)
[2023-02-02] MEDS: NICOTINE 14MG/24HR PATCH TRANSDERM SCH ×2 (07:50→07:51)
[2023-02-02 07:51] LABS: Prothrombin Time 19.3 sec (9.0-12.0)
[2023-02-02] MEDS: VENLAFAXINE HCL ER 75 MG CAP PO SCH (07:51)
[2023-02-02] MEDS: FAMOTIDINE 20 MG TAB PO SCH ×2 (07:51→20:12)
[2023-02-02] MEDS: SYMBICORT 80-4.5 MCG INHALER INHALATION SCH ×2 (07:51→20:12)
[2023-02-02] MEDS: GABAPENTIN 300 MG CAP PO SCH ×4 (07:51→20:12)
[2023-02-02] MEDS: ACAMPROSATE CALCIUM 333 MG TABLET.DR PO SCH ×3 (07:52→20:11)
[2023-02-02] MEDS: FUROSEMIDE 20 MG TAB PO SCH ×2 (07:52→15:00)
[2023-02-02] MEDS: HYDROcodone/APAP 7.5-325MG 1 EACH TAB PO PRN ×3 (07:55→22:20)
[2023-02-02] MEDS: LORazepam 1 MG TAB PO PRN ×3 (07:55→22:20)
[2023-02-02 07:59] VITALS: BP 137/84; PULSE 75
[2023-02-02] MEDS: NICOTINE GUM (POLACRILEX) 2 MG GUM BUCCAL PRN ×2 (08:17→14:56)
[2023-02-02] MEDS: methocarbamoL 750 MG TAB PO SCH ×4 (09:00→20:11)
--- NOTE | 2023-02-02 09:50 | P.PN ---
Subjective Progress Note Date: 02/02/23 Principal diagnosis: Assessment Major depressive disorder, recurrent, severe, with anxious features Alcohol use disorder Patient was directable and agreeable to speak with narrative writer in the office. Currently, the patient is not reporting any suicidal or homicidal ideation, intention, or plan. He is not reporting any auditory or visual hallucinations. He denies any paranoia or other delusions. He has been in adherent with his medications and is not reporting any significant side effects. He states that he feels significantly better with the increase in his medication dosage. The patient reports that his friend was able to pick him up tomorrow as he lives quite a distance away. He reports no issues regarding his sleep or his appetite. He lives in [facility] and he knew that if he tried to catch a bus and train home he would wind up drinking again. He understands that he needs to be with a sober friend he needs to find a place to stay when he gets home because he was living with an alcoholic friend. He does have a job to go to but he has some more things to resolve or he will simply relapsed. Mental Status Exam: General Appearance: Patient appears to be stated age is alert, directable, and cooperative. Behavior: Patient is calmly seated without any agitated behavior. Speech: Patient's speech is fluent and nonpressured. He rambles on the past and had a great deal of difficulty moving the future plan of how he is going to do okay given that [place]. Mood/Affect: Mood is improving mildly, affect is congruent and euthymic. Suicidality/Homicidality: Patient says he no longer feels suicidal E just worried to get drinking whether that would Perceptions: Patient denies any visual hallucinations and denies any auditory hallucinations Though content/process: There is no evidence of any delusional thought content and thought process is linear and goal-directed. Memory and concentration: AOX3, grossly intact for the purposes of this session Judgment and insight: Improving mildly Plan: He says his medications seem to be effective and he does not feel any change in that he slept -Patient continues to meet criteria for inpatient psychiatric admission for symptom stabilization and safety. Patient has signed adult voluntary form and medication consent and was placed in patient's chart. -Medications: Continue Campral 666 mg by mouth 3 times a day for alcohol use disorder Continue gabapentin 600 mg by mouth 4 times a day for neuropathy Continue Effexor 225 mg by mouth daily for depression/anxiety Continue trazodone 200 mg by mouth at bedtime for insomnia -When necessary Vistaril and Zyprexa for agitation/aggression. -SW on board for discharge planning. Encouraged the patient to participate in milieu. Objective - Vital Signs Vital signs: Vital Signs Temp 96.7 F L 02/01/23 10:34 Pulse 75 02/02/23 07:58 Resp 18 02/01/23 10:34 BP 137/84 02/02/23 07:58 Pulse Ox 96 02/01/23 10:34 FiO2 - Labs Labs: Abnormal Lab Results - Last 24 Hours (Table) 02/02/23 Range/Units 07:33 PT 19.3 H (9.0-12.0) sec INR 2.0 H (<1.2)
[2023-02-02] MEDS ORDERED: hydrOXYzine pamoate 25 MG CAP PO ONE (10:56)
[2023-02-02] MEDS ORDERED: WARFARIN 5 MG TAB PO ONE (18:00)
[2023-02-02] MEDS: ATORVASTATIN 40 MG TAB PO SCH (20:11)
[2023-02-02] MEDS: traZODone HCL 100 MG TAB PO SCH (22:20)
[2023-02-03 07:47] LABS: Glucose,Whole Blood 111 mg/dL (70-110)
[2023-02-03] MEDS: GABAPENTIN 300 MG CAP PO SCH ×3 (08:02→18:12)
[2023-02-03] MEDS: VENLAFAXINE HCL ER 75 MG CAP PO SCH (08:02)
[2023-02-03] MEDS: SYMBICORT 80-4.5 MCG INHALER INHALATION SCH (08:02)
[2023-02-03] MEDS: HYDROcodone/APAP 7.5-325MG 1 EACH TAB PO PRN ×2 (08:03→13:43)
[2023-02-03] MEDS: LORazepam 1 MG TAB PO PRN ×2 (08:03→13:41)
[2023-02-03] MEDS: FAMOTIDINE 20 MG TAB PO SCH (08:04)
[2023-02-03] MEDS: NICOTINE 14MG/24HR PATCH TRANSDERM SCH (08:04)
[2023-02-03] MEDS: metFORMIN 500 MG TAB PO SCH ×2 (08:04→18:12)
[2023-02-03] MEDS: ACAMPROSATE CALCIUM 333 MG TABLET.DR PO SCH ×2 (08:05→15:07)
[2023-02-03] MEDS: FUROSEMIDE 20 MG TAB PO SCH ×2 (08:05→15:07)
[2023-02-03] MEDS: methocarbamoL 750 MG TAB PO SCH ×3 (08:05→18:13)
[2023-02-03] MEDS: NICOTINE GUM (POLACRILEX) 2 MG GUM BUCCAL PRN ×2 (08:07→11:05)
--- NOTE | 2023-02-03 11:05 | P.PN ---
Subjective Progress Note Date: 02/03/23 Principal diagnosis: Assessment Major depressive disorder, recurrent, severe, with anxious features Alcohol use disorder Please refer to the discharge summary from 02/01. The patient continues to do well the reason he did not leave his he had no way to get back to [place] [employer] and was legitimately concerned of getting into trouble with his addictions if he was trying to some ride her catch a bus back there. He was post at a friend come and get him on Saturday but the friend has a new job and will be unable to calm the friend can come and get him today. We called a friend and let them know to go ahead and come. Mental Status Exam: No change he continues to do well General Appearance: Patient appears to be stated age is alert, directable, and cooperative. Behavior: Patient is calmly seated without any agitated behavior. Speech: Patient's speech is fluent and nonpressured. He rambles on the past and had a great deal of difficulty moving the future plan of how he is going to do okay given that past history of falling into alcohol abuse. Mood/Affect: Mood is improving mildly, affect is congruent and euthymic. Suicidality/Homicidality: Patient says he no longer feels suicidal. He is just worried that he might go back to drinking. Perceptions: Patient denies any visual hallucinations and denies any auditory hallucinations Though content/process: There is no evidence of any delusional thought content and thought process is linear and goal-directed. Memory and concentration: AOX3, grossly intact for the purposes of this session Judgment and insight: Improving mildly Plan: I think it's okay to go ahead and discharge him He knows that he is in danger of relapsing tall call he has a long history of sobriety and a plan to return to that He says his medications seem to be effective and he does not feel any change in that he slept -Patient remains stable and with help from his friend I think he is safe for discharge -Medications: He has refills already in place Continue Campral 666 mg by mouth 3 times a day for alcohol use disorder Continue gabapentin 600 mg by mouth 4 times a day for neuropathy Continue Effexor 225 mg by mouth daily for depression/anxiety Continue trazodone 200 mg by mouth at bedtime for insomnia -When necessary Vistaril and Zyprexa for agitation/aggression. -SW on board for discharge planning. Encouraged the patient to participate in milieu. Objective - Vital Signs Vital signs: Vital Signs Temp 96.7 F L 02/01/23 10:34 Pulse 75 02/02/23 07:58 Resp 18 02/01/23 10:34 BP 137/84 02/02/23 07:58 Pulse Ox 96 02/01/23 10:34 FiO2 - Labs Labs: Abnormal Lab Results - Last 24 Hours (Table) 02/03/23 Range/Units 07:45 POC Glucose (mg/dL) 111 H (70-110) mg/dL
[2023-02-03 13:24] LABS: INR 2.2 (<1.2); Prothrombin Time 21.2 sec (9.0-12.0)
[2023-02-03] MEDS ORDERED: WARFARIN 3 MG TAB PO ONE (18:00)
== END 2023-02-03 18:45 | disposition home or self-care (01) | DRG 885 ==
LOC: 3MHU 01-24 15:11
PROVIDERS: ADMIT Psychiatry & Neurology Psychiatry; ATTEND Psychiatry & Neurology Psychiatry
DX: F33.2 Major depressive disorder, recurrent severe without psychotic features (principal); Z68.42 Body mass index [BMI] 45.0-49.9, adult; F43.10 Post-traumatic stress disorder, unspecified; G47.00 Insomnia, unspecified; F10.10 Alcohol abuse, uncomplicated; E66.9 Obesity, unspecified; X78.1XXA Intentional self-harm by knife, initial encounter; E11.42 Type 2 diabetes mellitus with diabetic polyneuropathy; Z79.899 Other long term (current) drug therapy; Z86.711 Personal history of pulmonary embolism; Z87.891 Personal history of nicotine dependence; Z91.51 Personal history of suicidal behavior; Z59.00 Homelessness unspecified; Z63.4 Disappearance and death of family member; Z56.0 Unemployment, unspecified; Z28.311 Partially vaccinated for COVID-19; Z71.3 Dietary counseling and surveillance; G89.29 Other chronic pain; M54.9 Dorsalgia, unspecified; Z71.41 Alcohol abuse counseling and surveillance of alcoholic; Z71.89 Other specified counseling; Z79.01 Long term (current) use of anticoagulants; Z79.84 Long term (current) use of oral hypoglycemic drugs
CPT/HCPCS: 80061; 83036; 84443; 85610